=== PATIENT | female | born 1950 | race American Indian/Alaskan Native ===

== ENCOUNTER → 2017-06-12 | Day surgery (SDC) | payer OTHER ==
--- NOTE | 2017-06-13 15:18 | PATH ---
Cytology Non-Gynecological Report Patient Name: UMU HERNÁNDEZ [facility]. Rec. #: [id number] /Age/Gender: 1950 (Age: 66) / F Account: [id number] Location: RADIOLOGY Taken: 06/12/2017 Received: 06/12/2017 Reported: 06/13/2017 Physicians: Ame Crouch M.D. Specimen(s) Received RIGHT THYROID FNA Clinical History Right thyroid nodule Final Diagnosis THYROID GLAND, RIGHT LOBE, US GUIDED FINE NEEDLE ASPIRATION BIOPSY: SATISFACTORY FOR EVALUATION. NO MALIGNANT CELLS IDENTIFIED. 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 Comment: The smears and the cell block shows scattered clusters of bland appearing follicular epithelial cells, some with Hurthle cell (oncocytic) change. Colloid is present. Electronically Signed Earle Calix M.D. Gross Description Received are four air dried smears, four smears in 95% alcohol, and 20 cc of bloody fluid in formalin. Four diff-quik stained slides, four Pap stained slides and one cell block are made.
== END | disposition home or self-care (01) ==
LOC: JRADIR 08:43
PROVIDERS: ATTEND Internal Medicine Endocrinology, Diabetes & Metabolism
PROC: 0G9H3ZX Drainage of Right Thyroid Gland Lobe, Percutaneous Approach, Diagnostic (ICD-10-PCS; principal; 2017-06-12)
PROC: BG44ZZZ Ultrasonography of Thyroid Gland (ICD-10-PCS; 2017-06-12)
DX: E04.1 Nontoxic single thyroid nodule (principal)
CPT/HCPCS: 76942; 88173; 88305-TC